=== PATIENT | female | born 1975 | race Caucasian/White ===

== ENCOUNTER 2020-01-21 11:27 | Outpatient (CLI) | payer OTHER ==
--- NOTE | 2020-01-21 13:18 | RAD ---
TWO VIEW CHEST: HISTORY: Cough. FINDINGS: Poor inspiration. No focal infiltrate identified. Heart and mediastinum unremarkable. IMPRESSION: No evidence of infiltrate. POS: [facility]
== END 2020-01-21 11:28 | disposition home or self-care (01) ==
LOC: BICRAD 11:27
DX: R05 Cough (principal); Z20.828 Contact with and (suspected) exposure to other viral communicable diseases
CPT/HCPCS: 71046

== ENCOUNTER 2020-02-06 21:06 | Observation (INO) | payer OTHER ==
[2020-02-06] MEDS ORDERED: Lorazepam 2 MG/ML VIAL ONE (21:38)
[2020-02-06] MEDS ORDERED: Ketorolac Tromethamine 30 MG/ML VIAL ONE (21:38)
[2020-02-06] MEDS ORDERED: Fentanyl 100 MCG/2 ML VIAL ONE (21:38)
[2020-02-06] MEDS ORDERED: Dexamethasone 10 MG/ML VIAL ONE (21:39)
[2020-02-06 21:45] LABS: #Basophils 0.1 thou/uL (0.0-0.2); #Eosinphils 0.1 thou/uL (0.0-0.7); #Lymphocytes 1.4 thou/uL (1.20-3.40); #Monocytes 0.5 thou/uL (0.11-0.59); #Neutrophils 9.8 thou/uL (1.40-6.50); %Basophils 0.5 % (0.0-1.0); %Eosinophils 0.9 % (0.0-10.0); %Lymphocytes 11.9 % (21.0-51.0); %Monocytes 4.3 % (0.0-10.0); %Neutrophils 82.4 % (42.0-75.0); Hemoglobin 15.2 g/dL (12.0-16.0); Mean Corpuscular HGB CONC 33.6 g/dL (32.0-36.0); Mean Corpuscular Hemoglobin 30.6 pg (27.0-31.0); Mean Corpuscular Volume 91.3 fL (78.0-98.0); Mean Platelet Volume 7.9 fL (7.4-10.4); Platelet Count 300 thou/uL (130-400); RBC Distribution Width 12.3 % (11.5-14.5); Red Blood Cell (RBC) Count 4.97 mill/uL (4.20-5.40); White Blood Cell (WBC) Count 11.9 thou/uL (4.8-10.8)
[2020-02-06 21:57] LABS: BHCG - Serum Negative (NEGATIVE); Pregs Control Background? CLEAR/WHITE (CLR/WHITE); Pregs Control Bar Appear? YES (CONTROL BAR)
[2020-02-06 22:08] LABS: ALT (SGPT) 15 U/L (8-55); AST (SGOT) 17 U/L (5-34); Albumin 4.2 g/dL (3.5-5.0); Alkaline Phosphatase 64 U/L (40-110); Anion Gap 15 mmol/L (10-20); BUN (Urea Nitrogen) 13 mg/dL (7.0-18.7); Bilirubin, Total 0.5 mg/dL (0.2-1.2); Calc. Creatinine Clearance 0 mL/min (70-130); Calcium 9.5 mg/dL (7.8-10.44); Carbon Dioxide 25 mmol/L (22-29); Chloride 103 mmol/L (98-107); Estimated GFR-MDRD 78; Globulin 3.1 g/dL (2.4-3.5); Glucose 215 mg/dL (70-105); Potassium 4.1 mmol/L (3.5-5.1); Protein, Total 7.3 g/dL (6.0-8.3); Sodium 139 mmol/L (136-145)
--- NOTE | 2020-02-06 22:46 | CT ---
CT Lumbar Spine WO Con HISTORY: Back pain after lifting. COMPARISON: None. FINDINGS: The vertebral bodies maintain normal height. Mild disc narrowing is seen at the L5-S1 level . The facets are in normal alignment. No significant periaortic adenopathy. The visualized kidneys are normal. Review of disc levels does not show any obvious disc herniation in any of the vertebral body levels. Patient's body habitus degrades detail in the lower lumbar spine region. There is mild foraminal narrowing bilaterally at L5-S1. Suggestion of some mild canal narrowing at L4-5. IMPRESSION: No acute injury.
[2020-02-07] MEDS ORDERED: Lorazepam 2 MG/ML VIAL ONE (00:28)
[2020-02-07] MEDS ORDERED: Ondansetron PF 4 MG/2 ML Vial IVP PRN ×2 (01:44→04:12)
[2020-02-07] MEDS ORDERED: Ondansetron ODT 4 MG TAB SL PRN (01:44)
[2020-02-07] MEDS: Morphine 4 MG/ML VIAL SLOW IVP PRN ×2 (02:18→09:50)
[2020-02-07 02:31] VITALS: BMI 48.2
[2020-02-07] MEDS ORDERED: Acetaminophen 325 MG TAB PO PRN (04:12)
[2020-02-07] MEDS ORDERED: Acetaminophen 650 MG Suppository PR PRN (04:12)
[2020-02-07] MEDS ORDERED: Ondansetron ODT 4 MG TAB PO PRN (04:12)
--- NOTE | 2020-02-07 04:22 | PDOC.HHP ---
Hospitalist HPI - History of Present Illness Back pain History of Present Illness: Patient states she has had severe back pain x 2 days with inability to get out of bed and has considered using pads in bed due to pain with trying to get to the toilet. Denies any urinary incontinence or stool incontinence. No saddle numbness or tingling but with standing has had severe shooting pain up and down the left leg. Reports having high threshold for pain. States she first began having discomfort last Monday after lifting heavy feeding sacks. Reports having reduced sensation on the right lateral thigh which comes and goes. Seems to be worse when the pain is exacerbated. Denies any lower extremity weakness. She has a known history of sciatica. ED Course: In the ED she was given Ativan, Fentanyl, Decadron and Toradol. Labs done were unremarkable. CT of the L spine done showing no acute injury. The vertebral bodies maintain normal height. Mild disc narrowing is seen at the L5-S1 level. The facets are in normal alignment. No significant periaortic adenopathy. The visualized kidneys are normal. Review of disc levels does not show any obvious disc herniation in any of the vertebral body levels. Patients body habitus degrades detail in the lower lumbar spine region. There is mild foraminal narrowing bilaterally at L5-S1. Suggestion of some mild canal narrowing at L4-5. Hospitalist ROS - Review of Systems Constitutional: denies: fever, chills, sweats, weakness, malaise, other Eyes: denies: pain, vision change, conjunctivae inflammation, eyelid inflammation, redness, other ENT: denies: ear pain, ear discharge, nose pain, nose discharge, nose congestion , mouth pain, mouth swelling, throat pain, throat swelling, other Respiratory: denies: cough, dry, shortness of breath, hemoptysis, SOB with excertion, pleuritic pain, sputum, wheezing, other Cardiovascular: denies: chest pain, palpitations, orthopnea, paroxysmal noc. dyspnea, edema, light headedness, other Gastrointestinal: denies: nausea, vomiting, abdominal pain, diarrhea, constipation, melena, hematochezia, other Genitourinary: denies: dysuria, frequency, incontinence, hematuria, retention, other Musculoskeletal: reports: back pain Skin: denies: rash, lesions, beatris, bruising, other Neurological: reports: other (sciatica of left side) - Medication Medications: Active Medications Generic Name Dose Route Start Last Admin Trade Name Freq PRN Reason Stop Dose Admin Morphine Sulfate 4 mg 02/07/20 01:44 02/07/20 02:18 Morphine SLOW IVP 02/07/20 11:53 4 mg Q2H PRN Administration Pain Lisinopril 2.5 mg PO daily. Hospitalist History - Past Medical History Source: patient Cardiac: reports: HTN, Other (obesity) - Past Surgical History Past Surgical History: reports: no pertinent history - Family History Family History: reports: no pertinent history - Social History Smoking Status: Never smoker Alcohol: reports: None Drugs: reports: none Living Situation: With Family Activity level: independent ambulation - Exam General Appearance: NAD Eye: PERRL, anicteric sclera ENT: normocephalic atraumatic, no oropharyngeal lesions, moist mucosa Neck: supple, symmetric, no lymphadenopathy Heart: RRR, no murmur, no gallops, no rubs, normal peripheral pulses Respiratory: CTAB, no wheezes, no rales, no ronchi, normal chest expansion, no tachypnea Gastrointestinal: soft, non-distended, no guarding, no rigidity Gastrointestinal - other findings: obese, right lower abdo discomfort with palpation Extremities: no edema Skin: normal turgor Neurological: cranial nerve grossly intact, no weakness Neurological - other findings: focal area of reduced sensation on lateral aspect of right thigh Musculoskeletal: normal tone, normal strength, no muscle wasting Psychiatric: normal affect, normal behavior, A&O x 3 Hospitalist Results - Labs Result Diagrams: 02/06/20 21:36 02/06/20 21:36 Lab results: WBC 11.9 thou/uL (4.8-10.8) H 02/06/20 21:36 Hgb 15.2 g/dL (12.0-16.0) 02/06/20 21:36 Hct 45.4 % (36.0-47.0) 02/06/20 21:36 MCV 91.3 fL (78.0-98.0) 02/06/20 21:36 Plt Count 300 thou/uL (130-400) 02/06/20 21:36 Neutrophils % 82.4 % (42.0-75.0) H 02/06/20 21:36 ESR Westergren 20 mm/hr (Less than 20) 02/06/20 21:36 Sodium 139 mmol/L (136-145) 02/06/20 21:36 Potassium 4.1 mmol/L (3.5-5.1) 02/06/20 21:36 Chloride 103 mmol/L (98-107) 02/06/20 21:36 Carbon Dioxide 25 mmol/L (22-29) 02/06/20 21:36 BUN 13 mg/dL (7.0-18.7) 02/06/20 21:36 Creatinine 0.80 mg/dL (0.6-1.1) 02/06/20 21:36 Glucose 215 mg/dL (70-105) H 02/06/20 21:36 Calcium 9.5 mg/dL (7.8-10.44) 02/06/20 21:36 Total Bilirubin 0.5 mg/dL (0.2-1.2) 02/06/20 21:36 AST 17 U/L (5-34) 02/06/20 21:36 ALT 15 U/L (8-55) 02/06/20 21:36 Alkaline Phosphatase 64 U/L (40-110) 02/06/20 21:36 C-Reactive Protein 1.61 mg/dL (= or < 0.5) H 02/06/20 21:36 Serum Total Protein 7.3 g/dL (6.0-8.3) 02/06/20 21:36 Albumin 4.2 g/dL (3.5-5.0) 02/06/20 21:36 Hospitalist H&P A/P - Problem (1) Back pain Code(s): M54.9 - DORSALGIA, UNSPECIFIED Status: Acute (2) Sciatica of left side Code(s): M54.32 - SCIATICA, LEFT SIDE Status: Chronic (3) Hypertension Code(s): I10 - ESSENTIAL (PRIMARY) HYPERTENSION Status: Chronic (4) Obesity Code(s): E66.9 - OBESITY, UNSPECIFIED Status: Chronic - Plan Plan: Continue analgesia. PT/OT Obtain bladder scan, given right lower abdo discomfort, per patient has been emptying bladder fully and without any incontinence. Urinalysis Monitor BP. Reconcile home meds once verified. Day team to decide if additional imaging i.e. MRI indicated. CODE STATUS FULL Surrogate decision maker is her Edison Will.
[2020-02-07] MEDS: Lisinopril/Hydrochlorothiazide 20 mg/12.5 mg Tablet PO SCH (08:12)
[2020-02-07] MEDS: Ketorolac Tromethamine 30 MG/ML VIAL IVP PRN ×2 (08:12→18:26)
--- NOTE | 2020-02-07 11:25 | MRI ---
LUMBAR SPINE MRI WITHOUT IV CONTRAST: HISTORY: Back pain radiating down both legs, heavy lifting. COMPARISON: Lumbar spine CT scan, 02/06/2020. FINDINGS: There are some minimal type I end plate changes posteriorly at L4-L5. There is evidence for enlargement of the fundus of the uterus incompletely seen on this study. Conus medullaris region is unremarkable. T12-L1, L1-L2, and L2-L3 disks are normal without stenosis or significant abnormal desiccation change . L3-L4 disk: Desiccation change with some ligament and facet hypertrophic changes with very mild inde ntion of the ventral thecal sac. L4-L5 disk: Focal central protrusion with some annular fissures with moderate central canal and late ral recess stenosis and mild bilateral foraminal stenosis. L5-S1 disk: Focal central protrusion with some indention of the ventral thecal sac and some central canal and lateral recess stenosis bilaterally and moderate bilateral foraminal stenosis. IMPRESSION: 1. Multilevel variable severity canal, lateral recess, and foraminal stenosis most marked at L4-L5 a nd L5-S1. 2. Minimal type I end plate changes at L4-L5. 3. Evidence for enlargement of a partially visualized uterine fundus. If that is a concern, a follo wup nonemergent pelvic ultrasound might be considered. POS: [facility]
[2020-02-07] MEDS: Methocarbamol 500 MG TAB PO PRN (12:56)
[2020-02-07] MEDS ORDERED: methylPREDNISolone Sod Succ/PF 125 MG/2 ML VIAL IVP SCH (15:30)
[2020-02-07 15:41] LABS: Bacteria/HPF Rare-Few HPF (None Seen); Bilirubin Negative (Negative); Blood, Urine Negative (Negative); Clarity Clear (Clear); Glucose, Urine (Dipstick) 200 mg/dL (Negative); Leukocyte Negative Leu/uL (Negative); Nitrite Negative (Negative); Protein, Urine (Dipstick) 20 mg/dL (Neg-Trace); RBC/HPF 0-3 HPF (0-3); Squamous Epithelial 0-3 HPF (0-3); Urobilinogen Normal mg/dL (Less than 2); WBC/HPF 0-3 HPF (0-3)
[2020-02-07 15:42] LABS: Urine Culture Reflex No No
[2020-02-07] MEDS: HYDROcodone/Acetaminophen 5/325 mg Tablet PO PRN ×2 (15:46→21:14)
[2020-02-07] MEDS ORDERED: Morphine 4 MG/ML VIAL SLOW IVP SCH (18:30)
[2020-02-08] MEDS: Ketorolac Tromethamine 30 MG/ML VIAL IVP PRN ×2 (00:32→07:33)
[2020-02-08] MEDS: HYDROcodone/Acetaminophen 5/325 mg Tablet PO PRN ×2 (01:56→07:33)
[2020-02-08] MEDS: Methocarbamol 500 MG TAB PO PRN ×2 (01:56→12:29)
[2020-02-08 03:35] LABS: #Lymphocytes 1.9 thou/uL (1.20-3.40); #Monocytes 0.8 thou/uL (0.11-0.59); #Neutrophils 14.4 thou/uL (1.40-6.50); %Basophils 0.1 % (0.0-1.0); %Eosinophils 0.1 % (0.0-10.0); %Lymphocytes 11.1 % (21.0-51.0); %Monocytes 4.5 % (0.0-10.0); %Neutrophils 84.3 % (42.0-75.0); Hemoglobin 14.2 g/dL (12.0-16.0); Mean Corpuscular HGB CONC 33.4 g/dL (32.0-36.0); Mean Corpuscular Hemoglobin 30.7 pg (27.0-31.0); Mean Corpuscular Volume 91.8 fL (78.0-98.0); Mean Platelet Volume 7.9 fL (7.4-10.4); Platelet Count 323 thou/uL (130-400); RBC Distribution Width 12.5 % (11.5-14.5); Red Blood Cell (RBC) Count 4.63 mill/uL (4.20-5.40); White Blood Cell (WBC) Count 17.1 thou/uL (4.8-10.8)
[2020-02-08 03:58] LABS: Anion Gap 17 mmol/L (10-20); BUN (Urea Nitrogen) 20 mg/dL (7.0-18.7); Calc. Creatinine Clearance 194 mL/min (70-130); Calcium 9.5 mg/dL (7.8-10.44); Carbon Dioxide 22 mmol/L (22-29); Chloride 101 mmol/L (98-107); Estimated GFR-MDRD 73; Glucose 224 mg/dL (70-105); Potassium 4.4 mmol/L (3.5-5.1); Sodium 136 mmol/L (136-145)
[2020-02-08 07:26] VITALS: BP 120/72; TEMP 97.6
[2020-02-08] MEDS ORDERED: methylPREDNISolone Sod Succ/PF 125 MG/2 ML VIAL IVP SCH (09:00)
[2020-02-08] MEDS: Lisinopril/Hydrochlorothiazide 20 mg/12.5 mg Tablet PO SCH (10:00)
[2020-02-08] MEDS ORDERED: Gabapentin 300 MG CAP PO SCH (11:00)
--- NOTE | 2020-02-08 21:32 | DIS ---
DATE OF ADMISSION: 02/07/2020 DATE OF DISCHARGE: 02/08/2020 DISCHARGE DIAGNOSES: 1. 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 2. Morbid obesity with BMI of 48. 3. Hypertension. DISCHARGE MEDICATIONS: 1. Acetaminophen with codeine 1 to 2 tablets orally q.6 hours as needed for pain. 2. Gabapentin 300 mg orally three times daily. 3. Naprosyn 250 mg orally twice daily for 7 days. 4. Pantoprazole 40 mg orally daily for 3 days. 5. Prednisone 40 mg orally daily for 10 days. HISTORY OF PRESENT ILLNESS AND BRIEF HOSPITAL COURSE: The patient is a 44-year-old female with BMI of 43 and history of hypertension, who presented to the hospital with complaints of back pain for 2 days and inability to get out of the bed. She denies any numbness or altered sensation in her legs and she also denies incontinence and lower extremity weakness. CT scan of the lumbar spine in the emergency department did not reveal any acute injury. Subsequently, the patient was admitted to the hospital. An MRI was performed showing multilevel variable severity canal, lateral recess, and foraminal stenosis with most marked at L4-L5 and L5-S1, and minimal type-1 endplate changes at L4-L5. It also showed some enlargement of a partially visualized uterine fundus of unclear significance. The patient was started on corticosteroids, gabapentin, Toradol, and Tylenol No. 3, which led to control of her symptoms. The patient was advised to follow up with a unemployment specialist within 1 to 2 weeks and was also advised to follow up with her premium card cancellation clerk regarding the uterine enlargement. Job ID: [id number]
== END 2020-02-08 12:40 | disposition home or self-care (01) ==
LOC: ERS 21:06 → ONC 02-07 00:25
PROVIDERS: ADMIT Internal Medicine; ATTEND Internal Medicine
DX: M47.816 Spondylosis without myelopathy or radiculopathy, lumbar region (principal); M48.061 Spinal stenosis, lumbar region without neurogenic claudication; M54.32 Sciatica, left side; I10 Essential (primary) hypertension; E66.01 Morbid (severe) obesity due to excess calories; Z68.42 Body mass index [BMI] 45.0-49.9, adult; Z79.899 Other long term (current) drug therapy; Z88.0 Allergy status to penicillin
CPT/HCPCS: 36415; 72131; 72148; 80048; 80053; 81001; 84703; 85025; 85652; 86140; 96361; 96374; 96375; 96376; G0378; J1100; J1885; J2060; J2270; J2930; J3010